=== PATIENT | male | born 1975 | race Native Hawaiian/Other Pacific Islander ===

== ENCOUNTER 2018-05-19 19:51 | Emergency (ER) | payer BC ==
[~2018-05-19] VITALS: Ht 167.6 cm; Wt 68.0 kg
--- NOTE | 2018-05-19 21:30 | NUR ---
Pt's right ankle/foot was ESTELA wrapped and discharged from ER walking with crutches accompanied by .
--- NOTE | 2018-05-19 21:34 | NUR ---
Patient discharged to home in stable conditon. Written and verbal after care instructions given. Patient verbalizes understanding of instructions.
[2018-05-19 21:35] VITALS: BP 137/84
== END 2018-05-19 21:37 | disposition home or self-care (01) ==
LOC: ER 19:52
DX: S86.001A Unspecified injury of right Achilles tendon, initial encounter (principal); K21.9 Gastro-esophageal reflux disease without esophagitis; F17.200 Nicotine dependence, unspecified, uncomplicated; W11.XXXA Fall on and from ladder, initial encounter; Y93.89 Activity, other specified; Y92.89 Other specified places as the place of occurrence of the external cause; Y99.8 Other external cause status
CPT/HCPCS: 73700; A4663

== ENCOUNTER 2022-04-20 06:12 | Emergency (ER) | payer BC, OTHER ==
[~2022-04-20] VITALS: Ht 167.6 cm; Wt 67.6 kg
--- NOTE | 2022-04-20 07:00 | NUR ---
Dr Montaño at the bedside for MSE.
[2022-04-20] MEDS ORDERED: KETOROLAC TROMETHAMINE 30 MG INJ IM ONE (07:15)
[2022-04-20] MEDS ORDERED: DIAZEPAM 2 MG TABLET PO ONE (07:15)
[2022-04-20] MEDS ORDERED: KETOROLAC TROMETHAMINE 30 MG INJ ONE (07:42)
[2022-04-20] MEDS ORDERED: DIAZEPAM 2 MG TABLET ONE (07:42)
[2022-04-20] MEDS ORDERED: METH-807 PO (09:10)
[2022-04-20] MEDS ORDERED: LIDO1ADH71 TD (09:10)
[2022-04-20] MEDS ORDERED: IBUP-1955 PO (09:10)
[2022-04-20] MEDS ORDERED: DIAZ5TAB PO (09:12)
[2022-04-20 09:54] VITALS: BP 128/70
--- NOTE | 2022-04-20 09:54 | NUR ---
Patient discharged to home in stable condition. Written and verbal after care instructions given. Patient verbalizes understanding of instructions. Stressed follow up or return to ER for worsening s/s.
== END 2022-04-20 09:55 | disposition home or self-care (01) ==
LOC: ER 06:18
DX: M54.50 Low back pain, unspecified (principal); M51.16 Intervertebral disc disorders with radiculopathy, lumbar region; M48.061 Spinal stenosis, lumbar region without neurogenic claudication; K21.9 Gastro-esophageal reflux disease without esophagitis; F17.210 Nicotine dependence, cigarettes, uncomplicated
CPT/HCPCS: 99284; 72131; 96372; J1885; A4663

== ENCOUNTER 2022-10-11 07:20 | Emergency (ER) | payer BC, OTHER ==
[~2022-10-11] VITALS: Ht 167.6 cm; Wt 72.6 kg
[~2022-10-11 07:20] MED LIST: DIAZ5TAB PO; IBUP-1955 PO; LIDO1ADH71 TD; METH-807 PO
--- NOTE | 2022-10-11 07:45 | NUR ---
Pt arrived with c/o lower abdominal pain, 03/26, characterized as aching. Pt stated that he has hx of kidney stones. Seen by Dr. Jacobsen for MSE.
[2022-10-11 08:14] LABS: HEMATOCRIT 40.6 % (36.7-47.1); MEAN CORPUSCULAR HEMOGLOBIN 28.6 uug (23.8-33.4); MEAN CORPUSCULAR VOLUME 86.6 fL (73.0-96.2); PLATELET COUNT (AUTO) 178 K/uL (152-348)
[2022-10-11 08:21] LABS: CARBON DIOXIDE 28 mmol/L (21-32); CHLORIDE 103 mmol/L (98-107); CREATININE 1.2 mg/dL (0.6-1.3); GLUCOSE 112 mg/dL (74-106); POTASSIUM 3.8 mmol/L (3.5-5.1); UREA NITROGEN, BLOOD 20 mg/dL (7-18)
[2022-10-11 08:27] LABS: ALANINE AMINOTRANSFERASE 31 U/L (16-63); ALKALINE PHOSPHATASE 76 U/L (50-136); ASPARTATE AMINOTRANSFERASE 22 U/L (15-37); BILIRUBIN,DIRECT 0.1 mg/dL (0.0-0.2); BILIRUBIN,TOTAL 0.4 mg/dL (0.2-1.0); LIPASE 212 U/L (73-393)
--- NOTE | 2022-10-11 08:30 | NUR ---
Pt requested to have CT w/o contrast aside from US. made aware.
[2022-10-11 08:36] LABS: *BILIRUBIN,URIN NEGATIVE (NEGATIVE); *BLOOD, URINE 3+ (NEGATIVE); *CLARITY,URINE CLEAR (CLEAR); *COLOR,URINE YELLOW (YELLOW); *KETONES,URINE NEGATIVE (NEGATIVE); *UROBILINOGEN,URINE 0.2 E.U./dl (NORMAL); LEUKOCYTE ESTERASE ,URINE NEGATIVE (NEGATIVE); NITRITE, URINE NEGATIVE (NEGATIVE); PH,URINE 5.5 (5.0-8.0); UGLUCOSE NEGATIVE (NEGATIVE)
[2022-10-11] MEDS ORDERED: IV NORMAL SALINE 1000 ML BAG IV ONE (08:45)
[2022-10-11 08:52] LABS: TOTAL PROTEIN, SERUM 7.9 g/dL (6.4-8.2)
[2022-10-11] MEDS ORDERED: IBUP-1955 PO (09:29)
[2022-10-11] MEDS ORDERED: TAMS-3 PO (09:29)
[2022-10-11 10:30] VITALS: BP 127/86
[2022-10-11 11:08] LABS: BACTERIA,URINE FEW /HPF (NONE SEEN); SQUAMOUS EPITHELIAL CELL,UR NONE SEEN /HPF (NONE SEEN)
[2022-10-11 11:09] LABS: RBC,URINE 20-50 /HPF (0-3)
== END 2022-10-11 10:27 | disposition home or self-care (01) ==
LOC: ER 07:20
DX: N13.2 Hydronephrosis with renal and ureteral calculous obstruction (principal); R94.8 Abnormal results of function studies of other organs and systems; K21.9 Gastro-esophageal reflux disease without esophagitis; Z87.19 Personal history of other diseases of the digestive system
CPT/HCPCS: 36415; 76700; 83690; 84484; 85025; 93005; A4663; J7040